=== PATIENT | male | born 1975 | race African-American/Black ===

== ENCOUNTER 2021-01-11 11:03 | Inpatient (IN) | payer OTHER ==
[2021-01-11] MEDS ORDERED: CEFAZOLIN 1 GM/D5W 1 GM/50 ML BAG IVPB ONE (12:42)
[2021-01-11] MEDS ORDERED: DIPHTH,PERTUSS(ACELL),TET 0.5 ML DISP.SYRIN IM ONE ×2 (12:43→13:06)
[2021-01-11] MEDS ORDERED: CEFAZOLIN 1 GM/D5W 1 GM/50 ML BAG ONE (13:06)
[2021-01-11 13:15] LABS: BASO % 0.6 % (0-2.0); EOS % 0.1 % (0-4.5); HEMATOCRIT 40.1 % (35.4-49); HEMOGLOBIN 13.7 GM/dL (11.7-16.9); LYMPH % 15.1 % (8-40); MCH 32.1 pg (25.7-33.7); MCHC 34.3 g/dl (32.0-35.9); MEAN CELL VOLUME 93.7 fl (80-96); MONO % 11.3 % (3.8-10.2); NEUT % 72.9 % (42.8-82.8); PLATELET COUNT 225 10^3/uL (134-434); RBC 4.27 M/mm3 (4.00-5.60); RDW 13.3 % (11.9-15.9); WHITE BLOOD COUNT 7.7 K/mm3 (4.0-10.0)
[2021-01-11 13:25] LABS: INR 1.02 (0.83-1.09); PROTHROMBIN TIME (PATIENT) 12.3 SEC (9.7-13.0)
[2021-01-11 13:43] LABS: CALCIUM 9.4 mg/dL (8.5-10.1)
[2021-01-11 13:44] LABS: ALBUMIN 4.3 g/dl (3.4-5.0); BLOOD UREA NITROGEN 14.6 mg/dL (7-18)
[2021-01-11 13:47] LABS: CREATININE 1.2 mg/dL (0.55-1.3)
[2021-01-11 13:48] LABS: BILIRUBIN,TOTAL 0.6 mg/dL (0.2-1); TOT PROT 7.9 g/dl (6.4-8.2)
[2021-01-11] MEDS ORDERED: ACETAMINOPHEN 325 MG TABLET (FP) PO PRN (17:00)
[2021-01-11] MEDS ORDERED: oxyCODONE HCL 5 MG TABLET PO PRN (17:00)
[2021-01-12 04:28] VITALS: BMI 23.9
[2021-01-12 07:46] LABS: BASO % 0.6 % (0-2.0); EOS % 1.2 % (0-4.5); HEMATOCRIT 38.8 % (35.4-49); HEMOGLOBIN 13.4 GM/dL (11.7-16.9); LYMPH % 21.2 % (8-40); MCH 32.1 pg (25.7-33.7); MCHC 34.4 g/dl (32.0-35.9); MEAN CELL VOLUME 93.3 fl (80-96); MEAN PLT VOLUME 8.1 fl (7.5-11.1); MONO % 11.2 % (3.8-10.2); NEUT % 65.8 % (42.8-82.8); PLATELET COUNT 209 10^3/uL (134-434); RBC 4.16 M/mm3 (4.00-5.60); RDW 13.3 % (11.9-15.9)
[2021-01-12 08:01] LABS: CALCIUM 8.8 mg/dL (8.5-10.1)
[2021-01-12 08:02] LABS: ALBUMIN 3.6 g/dl (3.4-5.0); BLOOD UREA NITROGEN 11.7 mg/dL (7-18)
[2021-01-12 08:05] LABS: CREATININE 0.9 mg/dL (0.55-1.3)
[2021-01-12 08:06] LABS: TOT PROT 6.9 g/dl (6.4-8.2)
[2021-01-12] MEDS: ENOXAPARIN NA (PORCINE) 40 MG/0.4 ML DISP.SYRIN SQ SCH (10:45)
[2021-01-12] MEDS: CHOLECALCIFEROL (VIT D3) 1,000 UNIT (25 MCG) TABLET PO SCH (10:45)
[2021-01-12] MEDS ORDERED: PT OWN MED DRAWER 7, Y5N ONE (21:03)
[2021-01-13] MEDS: ENOXAPARIN NA (PORCINE) 40 MG/0.4 ML DISP.SYRIN SQ SCH (09:24)
[2021-01-13] MEDS: CHOLECALCIFEROL (VIT D3) 1,000 UNIT (25 MCG) TABLET PO SCH (09:24)
[2021-01-14] MEDS: CHOLECALCIFEROL (VIT D3) 1,000 UNIT (25 MCG) TABLET PO SCH (10:08)
[2021-01-14] MEDS: ENOXAPARIN NA (PORCINE) 40 MG/0.4 ML DISP.SYRIN SQ SCH (10:09)
[2021-01-14 13:28] VITALS: BP 123/85; PULSE 82; TEMP 98.4
== END 2021-01-14 17:17 | disposition home or self-care (01) | DRG 342 ==
LOC: JER 11:03 → UNDOADMOB 16:10 → JERBED 16:10 → J6S 22:22 → JERBED 22:22 → OBSVTOIN 01-12 11:44 → INTOOBSV 01-12 11:44 → J6S 01-12 11:44 → JERBED 01-12 11:44
DX: S92.351A Displaced fracture of fifth metatarsal bone, right foot, initial encounter for closed fracture (principal); S91.312A Laceration without foreign body, left foot, initial encounter; W19.XXXA Unspecified fall, initial encounter; Y93.89 Activity, other specified; Y92.89 Other specified places as the place of occurrence of the external cause; Y99.9 Unspecified external cause status
CPT/HCPCS: 36415; 73610-TC-LT-FY; 73610-TC-RT-FY; 73630-TC-LT; 73630-TC-RT-FY; 73700-TC-RT; 80053; 80061; 82306; 82607; 83036; 84443; 85025; 85610; 86850; 86900; 86901; 90715; 93005; 93010; 97116-GP; 97162-GP; 99285-25; C9803; U0003; U0005

== ENCOUNTER 2021-01-23 04:20 | Day surgery (SDC) | payer OTHER ==
[2021-01-21 17:17] VITALS: BMI 23.9
[2021-01-23] MEDS ORDERED: PROMETHAZINE HCL 25 MG/1 ML VIAL IVPUSH PRN (15:01)
[2021-01-23] MEDS ORDERED: oxyCODONE HCL 5 MG TABLET PO PRN (15:01)
[2021-01-23] MEDS ORDERED: ONDANSETRON 4 MG/2 ML VIAL IVPUSH PRN (15:01)
[2021-01-23] MEDS ORDERED: BUPIVACAINE HCL/PF 0.5% (5MG/ML) 10 ML VIAL ONE (15:52)
[2021-01-23] MEDS ORDERED: ROPIVACAINE HCL 0.5% 30ML VIAL ONE ×2 (16:30→16:31)
[2021-01-23] MEDS ORDERED: MIDAZOLAM HCL 2 MG/2 ML SINGLE DOSE VIAL ONE ×2 (16:32)
[2021-01-23] MEDS ORDERED: BUPIVACAINE HCL/PF 0.5% (5MG/ML) 10 ML VIAL IJ ONE (17:15)
[2021-01-23] MEDS ORDERED: LIDOCAINE HCL 1%, 10 MG/ML (20ML VIAL) INF ONE (17:15)
[2021-01-23 19:58] VITALS: BP 146/101; PULSE 83; TEMP 97.3
== END 2021-01-23 20:00 | disposition home or self-care (01) ==
LOC: JASU-SURG 04:20
PROVIDERS: ATTEND Student in an Organized Health Care Education/Training Program
PROC: 0QSN04Z Reposition Right Metatarsal with Internal Fixation Device, Open Approach (ICD-10-PCS; principal; 2021-01-23 16:00)
DX: S92.351A Displaced fracture of fifth metatarsal bone, right foot, initial encounter for closed fracture (principal); X58.XXXA Exposure to other specified factors, initial encounter; Y93.9 Activity, unspecified; Y92.9 Unspecified place or not applicable; Y99.9 Unspecified external cause status
CPT/HCPCS: 28485; C1713; 73610-TC-RT-FY; 73630-TC-RT-FY; 94760